=== PATIENT | female | born 1990 | race Caucasian/White ===

== ENCOUNTER 2018-11-17 07:53 | Day surgery (SDC) | payer BC, OTHER ==
[~2018-11-17] VITALS: Ht 160 cm; Wt 124.5 kg
[~2018-11-17 07:53] MED LIST: GLUC1000 OR; KEFL500C; LR 1,000 ML IV SCH; No Historical Meds; TYLENOL #3; ZOLO50TA OR; dexameTHASONE 4 MG/ML 1ML VIAL (J1100) IV ONE; macrobid
[2018-11-17] MEDS ORDERED: PROPOFOL 200 MG/20 ML VIAL As Ordered ONE ×2 (07:58→09:19)
[2018-11-17] MEDS ORDERED: SUGAMMADEX SODIUM 500 MG/5 ML VIAL (BRIDION) As Ordered ONE (08:03)
[2018-11-17 08:52] LABS: URINE PREG TEST NEGATIVE (NEGATIVE)
[2018-11-17] MEDS ORDERED: LIDOCAINE 2% INJ 100 MG/5 ML SDV (FOR ANES.) As Ordered ONE (09:19)
[2018-11-17] MEDS ORDERED: SUCCINYLCHOLINE 100 MG/5 ML SYRINGE (J0330) As Ordered ONE (09:19)
[2018-11-17] MEDS ORDERED: ONDANSETRON 4MG/2ML VIAL (J2405) As Ordered ONE (09:20)
[2018-11-17] MEDS ORDERED: ACETAMINOPHEN 1000MG 100ML IV BTL (OFIRMEV) (J0131 PER 10MG) As Ordered ONE (09:20)
[2018-11-17] MEDS ORDERED: dexameTHASONE 4 MG/ML 1ML VIAL (J1100) As Ordered ONE (09:20)
[2018-11-17] MEDS ORDERED: fentaNYL 100 MCG/2 ML INJECTION (J3010) As Ordered ONE ×3 (09:22→10:35)
[2018-11-17] MEDS ORDERED: MIDAZOLAM INJ 2 MG/2 ML VIAL (J2250) As Ordered ONE (09:23)
[2018-11-17] MEDS ORDERED: ROCURONIUM BROMIDE 50 MG/5 ML VIAL As Ordered ONE (09:36)
[2018-11-17] MEDS ORDERED: ESMOLOL INJ 100MG/10ML VIAL As Ordered ONE (10:02)
[2018-11-17] MEDS: fentaNYL 100 MCG/2 ML INJECTION (J3010) IV PRN ×2 (10:35→10:40)
[2018-11-17] MEDS ORDERED: ONDANSETRON 4MG/2ML VIAL (J2405) IV PRN (10:45)
[2018-11-17] MEDS ORDERED: METOCLOPRAMIDE INJ 10MG/2ML VIAL (J2765) IV PRN (10:45)
[2018-11-17] MEDS ORDERED: PERCOCET 5MG/325MG TAB PO PRN (10:45)
[2018-11-17] MEDS ORDERED: LR 1,000 ML IV SCH ×2 (10:45)
[2018-11-17] MEDS ORDERED: IBUPROFEN 100 MG/5 ML SUSP UDC DYE FREE As Ordered ONE (11:31)
[2018-11-17] MEDS ORDERED: IBUPROFEN 100 MG/5 ML SUSP UDC DYE FREE PO ONE (11:45)
[2018-11-17 12:00] VITALS: BP 128/86
--- NOTE | 2018-11-22 18:18 | RO ---
DATE OF PROCEDURE: 11/17/2018 PREPROCEDURE DIAGNOSIS: Chronic tonsillitis and asymmetrically enlarged tonsil. POSTPROCEDURE DIAGNOSIS: Chronic tonsillitis and asymmetrically enlarged tonsil. PROCEDURE: Tonsillectomy. SURGEON: Pratik Amanda MD LABORER CHEMICAL PROCESSING: ANESTHESIA: General. CLINICAL PREAMBLE: This 27-year-old woman presented with a history suggestive of chronic tonsillitis. Physical examination revealed asymmetric enlarged tonsil. The right tonsil was larger than the left side. Management options including tonsillectomy with lymphoma protocol processing for the tonsil tissue has been discussed with the patient. She understood and consented to the procedure. DESCRIPTION OF PROCEDURE: Patient was identified in preoperative holding and brought to the operating room in stable condition. In supine position on the operating table, patient received general anesthesia followed by orotracheal intubation without incident. Patient was prepped and draped in the usual fashion for the procedure. The Mile-Osei mouth gag was inserted and suspended. The right tonsil was medialized using curved Allis forceps. Mucosal incision was made over the superior pole of the right tonsil using the Coblator wand set at 7 for Coblation. The tonsillar capsule was identified, and dissection was carried out along this plane to excise the right tonsil. The left tonsil was then similarly dissected out. At the end of the procedure, both tonsil beds were free of bleeding. Estimated blood loss was less than 10 mL. No complication was encountered. Sponge and instruments counts were correct at the end of the procedure. General anesthesia was reversed, and patient was extubated and brought to the recovery room in stable condition. INTRAOPERATIVE FINDINGS: Right tonsil was larger than left side. Both tonsils were sent to the pathology department according to the lymphoma protocol. No formalin solution was used on the tissue specimen.
== END 2018-11-17 12:23 | disposition home or self-care (01) ==
LOC: M SDC 07:53
PROVIDERS: ATTEND Otolaryngology
DX: J35.01 Chronic tonsillitis (principal); R73.03 Prediabetes; D64.9 Anemia, unspecified; F41.9 Anxiety disorder, unspecified; F32.9 Major depressive disorder, single episode, unspecified
CPT/HCPCS: 42826; 84703; 88304; J0131; J0330; J1100; J2250; J2405; J3010

== ENCOUNTER 2019-11-23 13:59 | Emergency (ER) | payer OTHER, BC ==
[~2019-11-23] VITALS: Ht 160 cm; Wt 120.8 kg
[~2019-11-23 13:59] MED LIST changes: -LR 1,000 ML IV SCH; -dexameTHASONE 4 MG/ML 1ML VIAL (J1100) IV ONE
[2019-11-23 14:00] VITALS: BP 156/96
[2019-11-23] MEDS ORDERED: KETOROLAC 60MG 2ML VIAL IM ONE (14:30)
[2019-11-23] MEDS ORDERED: CYCLOBENZAPRINE 10MG TABLET PO ONE (14:30)
[2019-11-23] MEDS ORDERED: LIDOCAINE 5% (LIDODERM) PATCH TD ONE (14:30)
[2019-11-23] MEDS ORDERED: LIDO5DIS41 TOP (14:46)
[2019-11-23] MEDS ORDERED: CYCL-707 PO (14:46)
[2019-11-23] MEDS ORDERED: **NOTE PATIENT COMMENT** MISC XX SCH (21:00)
== END 2019-11-23 14:53 | disposition home or self-care (01) ==
LOC: M ED 13:59
DX: M54.9 Dorsalgia, unspecified (principal); R73.03 Prediabetes; F41.9 Anxiety disorder, unspecified; F32.9 Major depressive disorder, single episode, unspecified; Z88.0 Allergy status to penicillin; Z88.1 Allergy status to other antibiotic agents; Z79.84 Long term (current) use of oral hypoglycemic drugs
CPT/HCPCS: 99282; J1885

== ENCOUNTER → 2023-04-06 | Outpatient (CLI) | payer BC ==
[~2023-04-06] MED LIST changes: +CYCL-707 PO; +LIDO5DIS41 TOP
[2023-04-06 16:36] LABS: HEMATOCRIT 38.1 % (36.0-47.0); HEMOGLOBIN 12.4 g/dl (12.0-15.5); MEAN CORPUSCULAR HGB CONC 32.5 g/dl (32.0-36.5); MEAN CORPUSCULAR VOLUME 82.8 fl (80.0-96.0); PLATELET COUNT, AUTOMATED 253 10^3/uL (150-450); WHITE BLOOD COUNT 10.7 10^3/uL (4.0-10.0)
[2023-04-06 16:58] LABS: GLUCOSE CHALLENGE TEST 1 HOUR 141 MG/DL (LESS THAN 140)
[2023-04-06 17:28] LABS: HIV 1&2 SCREEN NEGATIVE (NEGATIVE)
[2023-04-06 17:35] LABS: HEPATITIS C VIRUS ABY INDEX 0.04 INDEX (<0.8)
[2023-04-06 18:27] LABS: GC DNA AMPLIFICATION NEGATIVE (NEGATIVE)
== END ==
LOC: M PLALAB 11:19
PROVIDERS: ATTEND Obstetrics & Gynecology
DX: Z34.91 Encounter for supervision of normal pregnancy, unspecified, first trimester (principal)

== ENCOUNTER → 2023-04-19 | Outpatient (CLI) | payer BC | LOC: M LAB 07:50 | PROVIDERS: ATTEND Obstetrics & Gynecology | DX: O99.810 Abnormal glucose complicating pregnancy (principal) ==

== ENCOUNTER → 2023-05-04 | Outpatient (REF) | payer BC ==
[2023-05-04 18:25] LABS: TOTAL PROTEIN,RANDOM URINE 52.1 MG/DL (0.0-14.0)
== END ==
LOC: M SFHCWAGY 17:14
PROVIDERS: ATTEND Obstetrics & Gynecology
DX: O10.919 Unspecified pre-existing hypertension complicating pregnancy, unspecified trimester (principal)

== ENCOUNTER → 2023-06-09 | Outpatient (REF) | payer BC ==
[2023-06-09 15:25] LABS: CHLAMYDIA DNA AMPLIFICATION NEGATIVE (NEGATIVE); GC DNA AMPLIFICATION NEGATIVE (NEGATIVE)
== END ==
LOC: M PLALAB 11:15
PROVIDERS: ATTEND Advanced Practice Midwife
DX: Z34.02 Encounter for supervision of normal first pregnancy, second trimester (principal)

== ENCOUNTER → 2023-06-23 | Outpatient (CLI) | payer MEDICAID, OTHER | LOC: M WHC 12:49 | PROVIDERS: ATTEND Advanced Practice Midwife | DX: Z34.02 Encounter for supervision of normal first pregnancy, second trimester (principal) ==

== ENCOUNTER → 2023-07-21 | Outpatient (REF) | payer OTHER, MEDICAID ==
[2023-07-21 17:30] LABS: BASO % 0.2 % (0.0-1.0); EOS # 0.1 10^3/uL (0.0-0.5); HEMATOCRIT 35.9 % (36.0-47.0); HEMOGLOBIN 11.7 g/dl (12.0-15.5); LYMPH # 1.7 10^3/uL (1.5-5.0); LYMPH % 12.3 % (24.0-44.0); MEAN CORPUSCULAR HEMOGLOBIN 28.2 pg (27.0-33.0); MEAN CORPUSCULAR HGB CONC 32.6 g/dl (32.0-36.5); MEAN CORPUSCULAR VOLUME 86.5 fl (80.0-96.0); MONO # 0.8 10^3/uL (0.0-0.8); MONO % 5.5 % (2.0-8.0); NEUTROPHILS % 80.6 % (36.0-66.0); PLATELET COUNT, AUTOMATED 235 10^3/uL (150-450); RED BLOOD COUNT 4.15 10^6/uL (4.00-5.40); WHITE BLOOD COUNT 13.6 10^3/uL (4.0-10.0)
[2023-07-21 17:34] LABS: ALBUMIN 2.8 G/DL (3.2-5.2); ALKALINE PHOSPHATASE 70 U/L (46-116); ALT/SGPT < 9 U/L (7.0-40); AST/SGOT < 8 U/L (<34); BILIRUBIN,TOTAL 0.3 MG/DL (0.3-1.2); BLOOD UREA NITROGEN 8 MG/DL (9-23); CALCIUM LEVEL 9.5 MG/DL (8.5-10.1); CARBON DIOXIDE LEVEL 24 MMOL/L (20-31); CHLORIDE LEVEL 106 MMOL/L (98-107); CHOLESTEROL LEVEL 194 MG/DL (<200); CHOLESTEROL RISK RATIO 2.79 (<5); GLOMERULAR FILTRATION RATE > 60.0 (>60); GLUCOSE, FASTING 80 MG/DL (60-100); HDL CHOLESTEROL 69.3 MG/DL (>40); LDL CHOLESTEROL 89.7 MG/DL (<100); MAGNESIUM LEVEL 1.8 MG/DL (1.8-2.4); NON-HDL-C 124.7 MG/DL; POTASSIUM SERUM 4.2 MMOL/L (3.5-5.1); SODIUM LEVEL 137 MMOL/L (136-145); TRIGLYCERIDES LEVEL 175 MG/DL (<150)
[2023-07-21 17:38] LABS: THYROID STIMULATING HORMONE 1.409 uIU/ML (0.55-4.78); TOTAL 25(OH) VITAMIN D 26.6 NG/ML (20.0-100.0)
== END ==
LOC: M LAB REF 16:45
PROVIDERS: ATTEND Nurse Practitioner Family
DX: E66.01 Morbid (severe) obesity due to excess calories (principal); E55.9 Vitamin D deficiency, unspecified

== ENCOUNTER → 2023-07-27 | Outpatient (CLI) | payer OTHER ==
[2023-07-27 15:26] LABS: HEMATOCRIT 36.2 % (36.0-47.0); HEMOGLOBIN 11.6 g/dl (12.0-15.5); MEAN CORPUSCULAR HEMOGLOBIN 28.6 pg (27.0-33.0); MEAN CORPUSCULAR VOLUME 89.2 fl (80.0-96.0); PLATELET COUNT, AUTOMATED 245 10^3/uL (150-450); RED BLOOD COUNT 4.06 10^6/uL (4.00-5.40); WHITE BLOOD COUNT 12.5 10^3/uL (4.0-10.0)
== END ==
LOC: M PLALAB 09:56
PROVIDERS: ATTEND Advanced Practice Midwife
DX: O10.919 Unspecified pre-existing hypertension complicating pregnancy, unspecified trimester (principal); Z3A.00 Weeks of gestation of pregnancy not specified

== ENCOUNTER → 2023-07-29 | Outpatient (CLI) | payer OTHER | LOC: M WHC 10:21 | PROVIDERS: ATTEND Advanced Practice Midwife | DX: O10.912 Unspecified pre-existing hypertension complicating pregnancy, second trimester (principal); Z3A.25 25 weeks gestation of pregnancy ==

== ENCOUNTER → 2023-08-20 | Outpatient (CLI) | payer OTHER | LOC: M WHC 06:41 | PROVIDERS: ATTEND Advanced Practice Midwife | DX: Z34.03 Encounter for supervision of normal first pregnancy, third trimester (principal); Z3A.29 29 weeks gestation of pregnancy ==

== ENCOUNTER → 2023-09-07 | Outpatient (CLI) | payer OTHER ==
[2023-09-07 14:52] LABS: HEMOGLOBIN A1c 5.1 % (4.0-6.0)
== END ==
LOC: M PLALAB 09:32
PROVIDERS: ATTEND Obstetrics & Gynecology
DX: O24.319 Unspecified pre-existing diabetes mellitus in pregnancy, unspecified trimester (principal)

== ENCOUNTER → 2023-09-08 | Outpatient (CLI) | payer OTHER | LOC: M RAD 14:58 | PROVIDERS: ATTEND Obstetrics & Gynecology | DX: Z36.2 Encounter for other antenatal screening follow-up (principal); Z3A.32 32 weeks gestation of pregnancy ==

== ENCOUNTER → 2023-09-30 | Outpatient (CLI) | payer OTHER | LOC: M RAD 08:00 | PROVIDERS: ATTEND Advanced Practice Midwife | DX: O10.913 Unspecified pre-existing hypertension complicating pregnancy, third trimester (principal); Z3A.35 35 weeks gestation of pregnancy ==

== ENCOUNTER → 2023-10-06 | Outpatient (REF) | payer MEDICAID, OTHER | LOC: M SFHCWAGY 16:54 | PROVIDERS: ATTEND Advanced Practice Midwife | DX: Z3A.36 36 weeks gestation of pregnancy (principal) ==

== ENCOUNTER → 2023-10-12 | Outpatient (CLI) | payer OTHER ==
[2023-10-12 17:52] LABS: HEMATOCRIT 36.5 % (36.0-47.0); HEMOGLOBIN 11.4 g/dl (12.0-15.5); MEAN CORPUSCULAR HEMOGLOBIN 27.6 pg (27.0-33.0); MEAN CORPUSCULAR HGB CONC 31.2 g/dl (32.0-36.5); MEAN CORPUSCULAR VOLUME 88.4 fl (80.0-96.0); PLATELET COUNT, AUTOMATED 226 10^3/uL (150-450); RED BLOOD COUNT 4.13 10^6/uL (4.00-5.40); WHITE BLOOD COUNT 10.4 10^3/uL (4.0-10.0)
[2023-10-12 18:18] LABS: URIC ACID 4.3 MG/DL (3.1-7.8)
[2023-10-12 18:20] LABS: LDH LACTATE DEHYDROGENASE 126 U/L (120-246)
[2023-10-12 18:21] LABS: ALT/SGPT 9 U/L (7.0-40); AST/SGOT 10 U/L (<34); BILIRUBIN,TOTAL 0.3 MG/DL (0.3-1.2); CREATININE FOR GFR 0.76 MG/DL (0.55-1.30); GLOMERULAR FILTRATION RATE > 60.0 (>60)
[2023-10-12 20:15] LABS: TOTAL PROTEIN,RANDOM URINE 58.9 MG/DL (0.0-14.0)
[2023-10-12 20:21] LABS: CREATININE,RANDOM URINE 333.2 MG/DL
== END ==
LOC: M PLALAB 14:34
PROVIDERS: ATTEND Advanced Practice Midwife
DX: O10.919 Unspecified pre-existing hypertension complicating pregnancy, unspecified trimester (principal)